=== PATIENT | male | born 1965 | race Caucasian/White ===

== ENCOUNTER 2020-04-29 10:03 | Inpatient (IN) | payer MEDICAID, SELFPAY ==
[~2020-04-29] VITALS: Ht 175.3 cm; Wt 98.4 kg
[2020-04-29 10:07] VITALS: Ht 175.3 cm; Wt 98.4 kg
--- NOTE | 2020-04-29 10:21 | NUR ---
ARRIVES TO ROOM 7 FOR EVALUATION. ALERT. HAS DYSPNEA. SAT LEVELS AT 97%. ALERT. SKIN DRY. WAS SEEN AT [facility]RG[facility]ARE YESTERDAY., HAD NEB TX AND PUT ON STEROIDS.
--- NOTE | 2020-04-29 10:26 | NUR ---
DR. SANTOS AT BEDSIDE TO SEE PT. MEDICAL SCREENING EXAM IN PROGRESS
--- NOTE | 2020-04-29 10:51 | NUR ---
RADIOLOGY DEPT AT BEDSIDE, PCXR IN PROGRESS.
[2020-04-29 11:01] LABS: BASOPHIL % 0.5 % (0.2-1.5); PLATELET COUNT 238 x10^3mcL (152-348)
[2020-04-29 11:06] LABS: RED CELL DISTRIBUTION WIDTH 14.8 % (12.1-16.2)
[2020-04-29 11:08] LABS: CALCIUM 8.8 mg/dL (8.5-10.1); CARBON DIOXIDE 29.7 mmol/L (21-32); CHLORIDE SERUM 105 mmol/L (98-107); CREATININE SERUM 1.1 mg/dL (0.7-1.3); GFR1 > 60 mL/min; GLUCOSE SERUM 100 mg/dL (74-106); POTASSIUM SERUM 4.5 mmol/L (3.5-5.1); SODIUM SERUM 143 mmol/L (136-145)
[2020-04-29 11:13] LABS: ALBUMIN 3.5 g/dL (3.4-5.0); ALKALINE PHOSPHATASE 65 U/L (46-116); ALT/SGPT 50 U/L (16-63); AST/SGOT 52 U/L (15-37); BILIRUBIN TOTAL 1.18 mg/dL (0.20-1.00); TOTAL PROTEIN, SERUM 6.9 g/dL (6.4-8.2)
[2020-04-29] MEDS ORDERED: PROAIR RES117 MCG/Ac INH (12:03)
[2020-04-29] MEDS ORDERED: CARVEDILOL3.125 M1 PO (12:03)
[2020-04-29] MEDS ORDERED: ASPIRIN ADULT L81 M5 PO (12:04)
[2020-04-29] MEDS ORDERED: KLOR-CON M2020 MEQ PO (12:04)
[2020-04-29] MEDS ORDERED: ATORVASTATIN CA40 M1 PO (12:04)
[2020-04-29] MEDS ORDERED: PREDNISONE1 MG PO (12:05)
[2020-04-29] MEDS ORDERED: ALD25 PO (12:05)
[2020-04-29] MEDS ORDERED: TOPROL XL100 MG PO (12:06)
[2020-04-29] MEDS ORDERED: LASIX80 MG PO (12:06)
--- NOTE | 2020-04-29 12:17 | NUR ---
PT WAS SET UP WITH MEAL TRAY
--- NOTE | 2020-04-29 12:37 | NUR ---
EATING LUNCH AT THIS TIME. PT STATES IT'S DIFFICULT TO EAT, BUT ABLE TO SPOON FEED HIMSELF
[2020-04-29 12:49] LABS: AMPHETAMINE QUAL UR POSITIVE (See below)
--- NOTE | 2020-04-29 13:02 | NUR ---
REPORT CALLED TO DONALD SMITH ON 2ND FLOOR.
[2020-04-29 13:30] VITALS: BP 140/95
--- NOTE | 2020-04-29 13:41 | NUR ---
RECEIVED PT FROM ER, PT ADMIT FOR CHF. PT IS A/O X4, VERBAL RESPONSIVE. LUNG SOUND MILD WHEEZING JENISE. C/O SOB WHILE AMBULATE. PT IS ON 2L/MIN O2 VIA NC. P2O 99%, PT IS ON TELE 35, NSR, DENY ANY CHEST PAIN OR DISCOMFORT, BOWEL SOUND PRESENT ALL 4 QUADRANTS, NO DISTENTION, NO TENDER. PEDAL PULSE PRESENT BOTH FEET, +1 EDEMA BLE. IV AT LEFT FA, NO LEAKING, NO INFILTRATION. ALL ADLS ASSIST, ALL NEED MET, CALL LIGHT IN REACH, WILL CONTINUE TO MONITOR.
[2020-04-29 16:55] VITALS: BP 132/102
--- NOTE | 2020-04-29 19:54 | NUR ---
@1850 PT C/O SOB. O2 WAS INCREASED TO 5L VIA NASAL CANNULA. PT WAS INSTRUCTED TO ASK FOR HELP AND NOT TO GET OUT OF BED WITHOUT O2 SUPPORT, VERBALIZED UNDERSTANDING. SAO2 98% ON 2-5L O2 VIA NC. ENDORSED CARE TO NIGHT NURSE.
--- NOTE | 2020-04-29 19:55 | NUR ---
RECEIVED REPORT FROM AM NURSE. PT IS A&OX4, ON TELE #35, NSR. +1 EDMEMA BLE, BUE ARE COLD TO TOUCH. MILD WHEEZING BILATERALLY. PT IS ON 5L NC, SPO2 100%. PT C/O DIFFICULTY BREATHING AND FEELING CLAUSTROPHOBIC. PT DENIES CHEST PAIN, DENIES N/V/D. PT STATED HE WANTED TO SIT ON A CHAIR. ASSISTED PT UP ONTO A CHAIR. PT STATES HE BREATHES A LITTLE BETTER WHILE SITTING ON A CHAIR. CALL LIGHT IS WITHIN REACH. WILL CONTINUE TO MONITOR.
[2020-04-29 21:22] VITALS: BP 135/100
--- NOTE | 2020-04-30 00:40 | NUR ---
PT IS SITTING UP ON THE CHAIR. PT STATES HE IS BREATHING A LOT BETTER WHEN SITTING ON THE CHAIR. PT IS NOT IN ACUTE DISTRESS AT THIS TIME. PT DENIES CHEST PAIN. NO C/O PAIN. PT STATES IT IS DIFFICULT FOR HIM TO EAT SOLID FOOD BECAUSE IT MAKES HIM WANT TO VOMIT. CALL LIGHT IS WITHIN REACH. WILL CONTINUE TO MONITOR.
--- NOTE | 2020-04-30 02:25 | NUR ---
PT STATES HE DID NOT EAT ALL DAY. BECAUSE HE DOES NOT TOLERATE SOLID FOOD WELL, VOMITS WHEN EATING. PT STATES HE TOLERATES SOFT FOOD OK. DR NOEL IS AWARE.
[2020-04-30 05:36] VITALS: BP 106/84
--- NOTE | 2020-04-30 06:47 | NUR ---
PT IS RESTING IN BED. NO ACUTE CHANGES THROUGHOUT THE SHIFT. PT IS NOT IN ACUTE DISTRESS AT THIS TIME. NO C/O SOB. CALL LIGHT IS WITHIN REACH. WILL ENDORSE CARE TO AM NURSE.
--- NOTE | 2020-04-30 08:00 | NUR ---
RECEIVED PT FROM NIGHT NURSE. AAOX4. PT DENIES SOB AT THIS TIME. CURRENTLY ON 2L O2 VIA NASAL CANNULA, SAO2 97%. LS CTA. BLE +1 PITTING EDEMA. PT AMBULATORY WITH STEADY GAIT. POOR ACTIVITY TOLERANCE, BEDSIDE COMMODE NEARBY. NO ACUTE DISTRESS NOTED. WILL CONTINUE TO MONITOR.
[2020-04-30 08:25] VITALS: BP 134/97
--- NOTE | 2020-04-30 11:41 | NUR ---
BNP AND WBC REPORTED TO PRACTITIONER. REDRAW ORDERED FOR AM 05/01
--- NOTE | 2020-04-30 12:15 | NUR ---
PT HAD EPISODE OF BRADYCARDIA TO 48 BPM LASTING <30 SEC. PT REMAINED ASYMPTOMATIC. DENIES CHEST PAIN.
[2020-04-30 12:23] VITALS: BP 117/75
[2020-04-30 16:31] VITALS: BP 112/86
--- NOTE | 2020-04-30 18:38 | NUR ---
NEW IV ACCESS IN LFA, 22 G
--- NOTE | 2020-04-30 18:38 | NUR ---
800 ML OF URINE OUTPUT DURING SHIFT. PT C/O ORTHOPNEA AND WAKING WITH SOB. VS REMAINED WNL AND PT FREE OF CHEST PAIN. ECHO COMPLETED TODAY. PRACTITIONER RECOMMENDS HOSPITAL STAY AT LEAST 2 MORE DAYS. REMAINS ON 2L O2 WITH SAO2 98%. PT REPORTS 'FEELING MUCH BETTER TODAY.' LESS FATIGUE AND SOB. REMAINS AAOX4. NO EMERGENT ISSUES OR ACUTE DISTRESS NOTED. WILL ENDORSE TO NIGHT NURSE.
--- NOTE | 2020-04-30 19:40 | NUR ---
RECIEVED REPORT FROM AM NURSE. PT IS A&OX4, ON TELE #25, NSR. PULSES ARE PRESENT AND EQUAL. +1 EDEMA ON BLE. LUNG SOUNDS ARE CLEAR, PT ON 2L NC FOR COMFORT. BREATHING IS EVEN AND UNLABORED. SPO2 96%. PT HAS IV LFA, IV SITE CDI, NO SIGNS OF INFECTION OR INFILTRATION. CALL LIGHT IS WITHIN REACH. WILL CONTINUE TO MONITOR.
[2020-04-30 20:10] VITALS: BP 140/85
--- NOTE | 2020-05-01 01:52 | NUR ---
PT IS SITTING UP ON THE CHAIR WATCHING TV. PT IS NOT IN ACUTE DISTRESS AT THIS TIME. PT HAS NO C/O PAIN OR DISCOMFORT. PT STATES HE FEELS A LOT BETTER THAN YESTERDAY. PT DENIES SOB. CALL LIGHT IS WITHIN REACH. WILL CONTINUE TO MONITOR.
[2020-05-01 06:17] VITALS: BP 130/96
--- NOTE | 2020-05-01 06:42 | NUR ---
PT IS RESTING IN BED. NO ACUTE CHANGES THROUGHOUT THE SHIFT. PT DENIES SOB. PT IS NOT IN ACUTE DISTRESS. CALL LIGHT IS WITHIN REACH. WILL ENDORSE CARE TO AM NURSE.
[2020-05-01 06:50] LABS: BASOPHIL % 0.6 % (0.2-1.5); PLATELET COUNT 235 x10^3mcL (152-348)
[2020-05-01 06:53] LABS: CALCIUM 8.2 mg/dL (8.5-10.1); CARBON DIOXIDE 34.2 mmol/L (21-32); CHLORIDE SERUM 102 mmol/L (98-107); CREATININE SERUM 1.2 mg/dL (0.7-1.3); GFR1 > 60 mL/min; GLUCOSE SERUM 109 mg/dL (74-106); POTASSIUM SERUM 3.6 mmol/L (3.5-5.1); SODIUM SERUM 142 mmol/L (136-145)
[2020-05-01 07:01] LABS: RED CELL DISTRIBUTION WIDTH 14.7 % (12.1-16.2)
--- NOTE | 2020-05-01 07:30 | NUR ---
PATIENT IS AWAKE AND ALERT, REPORTS NO PAIN OR DIFFICULTY BREATHING ON ROOM AIR. IV ON LFA 22G, CLEAN, INTACT AND FLUSHING. LEFT PATIENT RESTING WITH CALL LIGHT IN REACH, BED LOCKED AND LOWERED.
[2020-05-01 08:14] VITALS: BP 124/87
[2020-05-01 11:35] VITALS: BP 133/75
[2020-05-01 16:37] VITALS: BP 134/94
[2020-05-01 16:40] VITALS: BP 127/72
--- NOTE | 2020-05-01 19:00 | NUR ---
PATIENT IS A&OX4, ON ROOM AIR, IV IN LFA, 22 GAUGE, IS CLEAN AND INTACT. PATIENT DENIES ANY PAIN, REPORTS FEELING SOB WHEN STANDING UP OR EATING. NO DIFFICULTY BREATHING AT REST. LEFT PATIENT RESTING WITH ALL NEEDS ATTENDED TO.
--- NOTE | 2020-05-01 19:30 | NUR ---
RECEIVED REPORT FROM AM NURSE. PT IS A&OX4, ON TELE #35, NSR. PULSES ARE EQUAL AND PRESENT. +1 PITTING EDEMA IS NOTED ON BLE. WHEEZING IN BILATERAL LUNGS UPON AUSCULATION. PT IS ON ROOM AIR BUT HAS 2L NC ON SIDE OF BED FOR COMFORT. PT DENIES SOB, BUT HAS C/O SOB UPON AMBULATION AND EXERTION. LAST BOWEL MOVEMENT WAS 05/01/20. BOWEL SOUNDS ARE NORMOACTIVE X4. PT HAS URINAL AT BEDSIDE. PT HAS A IV IN LFA, IV SITE IS CDI. NO SIGNS OF INFECTION OR INFILTRATION NOTED. CALL LIGHT IS WITHIN REACH. WILL CONTINUE TO MONITOR.
[2020-05-01 20:00] VITALS: BP 129/83
--- NOTE | 2020-05-02 01:26 | NUR ---
PT IS RESTING IN BED WITH EYES CLOSED BUT IS EASILY AROUSABLE. PT IS NOT IN ACUTE DISTRESS AT THIS TIME. BREATHING IS EVEN AND UNLABORED. PT DENIES SOB. NO C/O PAIN OR DISCOMFORT. CALL LIGHT IS WITHIN REACH. WILL CONTINUE TO MONITOR.
[2020-05-02 05:00] VITALS: BP 134/84
--- NOTE | 2020-05-02 06:26 | NUR ---
PT IS RESTING IN BED. NO ACUTE CHANGES THROUGHOUT THE SHIFT. PT IS NOT IN ACUTE DISTRESS AT THIS TIME. PT DENIES SOB. NO C/O PAIN OR DISCOMFORT. CALL LIGHT IS WITHIN REACH. WILL ENDORSE CARE TO AM NURSE.
[2020-05-02 07:01] LABS: BASOPHIL % 0.6 % (0.2-1.5); PLATELET COUNT 245 x10^3mcL (152-348)
[2020-05-02 07:32] LABS: CALCIUM 8.7 mg/dL (8.5-10.1); CARBON DIOXIDE 35.2 mmol/L (21-32); CHLORIDE SERUM 101 mmol/L (98-107); GFR1 > 60 mL/min; GLUCOSE SERUM 118 mg/dL (74-106); POTASSIUM SERUM 3.7 mmol/L (3.5-5.1); SODIUM SERUM 141 mmol/L (136-145)
--- NOTE | 2020-05-02 07:43 | NUR ---
RECEIVED PT FROM PM SHIFT. PT IS AWAKE AND RESTING COMFORTABLY AT THIS TIME. NO FACIAL DISTRESS OR SOB NOTED. PT IS A/OX4. ABLE TO MAKE NEEDS KNOWN. DENIES DUKES/DIZZINESS. LUNG SOUNDS CTA. BREATHING E/U ON 2L NC. TELE #35. DENIES CP. PALPABLE PULSES. +1 EDEMA NOTED TO BLE. NORMOACTIVE BSX4. ABD SOFT AND NONDISTENDED. DENIES N/V/D. VOIDS FREELY. URINAL BY BEDSIDE. AMBULATORY BASELINE. SKIN INTACT. NO C/O PAIN AT THIS TIME. IV 22G TO LFA. SL. FLUSHES WITH NO DIFFICULTY. BED AT LOWEST POSITION. CALL BUTTON WITHIN REACH. WILL CONTINUE TO MONITOR.
[2020-05-02 08:08] VITALS: BP 126/87
[2020-05-02 12:16] VITALS: BP 125/74
--- NOTE | 2020-05-02 14:29 | NUR ---
SPOKE WITH SHANDRA THE ROAD SUPERVISOR. SHE STATES THAT PATIENT WILL BE RECEIVING A PORTABLE O2 SOMETIMES TODAY PRIOR TO DISCHARGE.
[2020-05-02 15:19] VITALS: BP 125/74
[2020-05-02] MEDS ORDERED: L40 PO (15:21)
--- NOTE | 2020-05-02 15:53 | NUR ---
REVIEWED DISCHARGE PAPERWORK WITH PATIENT. PATIENT VERBALIZED UNDERSTANDING TO BOTH NEW MEDICATION AND CARE. PAPERWORK SIGNED AND PLACED IN PATIENT'S CHART. IV REMOVED. PT LEFT HOSPITAL IN STABLE CONDITION WITH ALL PERSONAL BELONGINGS.
== END 2020-05-02 15:46 | disposition home or self-care (01) | DRG 194 ==
LOC: ED 10:03 → DU 11:53
PROVIDERS: Emergency Medicine; ADMIT Family Medicine; ATTEND Family Medicine
DX: I50.23 Acute on chronic systolic (congestive) heart failure (principal); J96.01 Acute respiratory failure with hypoxia; I42.9 Cardiomyopathy, unspecified; F15.10 Other stimulant abuse, uncomplicated; Z20.822 Contact with and (suspected) exposure to COVID-19; Z87.891 Personal history of nicotine dependence; I25.10 Atherosclerotic heart disease of native coronary artery without angina pectoris; Z91.19 Patient's noncompliance with other medical treatment and regimen; T50.995A Adverse effect of other drugs, medicaments and biological substances, initial encounter; Y92.89 Other specified places as the place of occurrence of the external cause
CPT/HCPCS: 83880; G0378; J1940